=== PATIENT | male | born 1950 | race Caucasian/White ===

== ENCOUNTER → 2024-09-06 15:06 | Outpatient (CLI) | payer MEDICARE, SELFPAY ==
--- NOTE | 2024-09-06 15:09 | DI.MRI.S_ITS ---
PROCEDURE: MR ABDOMEN WO/W CON INDICATIONS: CHRONIC ABD PAIN TECHNIQUE: Coronal HASTE, axial 2D FLASH in- and [id number]; axial breath-hold T2 FSE. Dynamic axial VIBE during the administration of contrast; post-contrast coronal VIBE or 2D FLASH with fat saturation from the hepatic dome to the iliac crests. Optional diffusion weighted imaging and ADC may be performed. COMPARISON: None. FINDINGS: Image quality: Degraded by motion artifact Lower chest: Unremarkable lung bases Liver: Unremarkable Gallbladder and biliary system: Cholelithiasis. Nondilated biliary system Pancreas: Moderate parenchymal atrophy, with abrupt transition at the neck to more normal signal the head. No definite ductal dilation, although there appears to be beading throughout the pancreas. There are numerous cystic lesions, the largest multi lobulated lesion measures 2.6 x 2.1 cm in the superior body. Another multi lobulated lesion is seen at the tail measuring 2.7 x 1.4 cm (3/15, 5/16). No definite nodular enhancement, although there are many septations that appear to have thin enhancement. Spleen: Nonenlarged Adrenals: No discrete nodules Kidneys: No solid mass. No hydronephrosis. Vessels and lymph nodes: No pathologic lymph nodes by size criteria. No abdominal aortic aneurysm. The main portal vein is patent. Bowel and peritoneum: Moderate gastric distention. No bowel obstruction. Body wall: Unremarkable Bones: Degenerative changes are seen. IMPRESSION: Moderate pancreatic parenchymal atrophy, with abrupt transition at the neck to more normal signal at the head (best seen on series 12). This could represent ductal stenosis or obstructing stone (often from prior pancreatitis), versus imaging occult obstructing mass. In addition, there are numerous cystic lesions throughout the pancreas, the largest in the superior body and tail is described above. Differential includes cystic neoplasms such as IPMN versus sequelae of prior inflammation (pseudocysts) GI follow-up is recommended. If no intervention is pursued, consider follow-up in 6-12 months with MRI. Cholelithiasis. No biliary ductal dilation today. Other findings above. Dictated by: Landry Torres M.D. on 09/07/2024 at 10:24 Approved by: Landry Torres M.D. on 09/07/2024 at 10:31
== END ==
PROVIDERS: PCP Family Medicine; Referring Provider Internal Medicine Gastroenterology; Visit Provider Internal Medicine Gastroenterology
DX: K80.20 Calculus of gallbladder without cholecystitis without obstruction (principal); K86.89 Other specified diseases of pancreas; R10.9 Unspecified abdominal pain; G89.29 Other chronic pain
CPT/HCPCS: 74183; A9579